=== PATIENT | male | born 1945 | race Caucasian/White ===

== ENCOUNTER 2018-01-24 10:00 | Day surgery (SDC) | payer MEDICARE, OTHER ==
[~2018-01-24 10:00] MED LIST: BUPIVACAINE HCL 0.5% 10 ML VIAL As Ordered
[2018-01-24] MEDS: NS 1,000 ML IV (10:15)
[2018-01-24] MEDS ORDERED: PROPOFOL 200 MG/20 ML VIAL As Ordered ×2 (10:35)
== END 2018-01-24 12:07 | disposition home or self-care (01) ==
LOC: M OPP 10:00
DX: Z12.11 Encounter for screening for malignant neoplasm of colon (principal); Z86.010 Personal history of colon polyps; D12.5 Benign neoplasm of sigmoid colon; D12.2 Benign neoplasm of ascending colon; I10 Essential (primary) hypertension; E78.5 Hyperlipidemia, unspecified; M19.90 Unspecified osteoarthritis, unspecified site; Z95.5 Presence of coronary angioplasty implant and graft; Z79.899 Other long term (current) drug therapy
CPT/HCPCS: 45385

== ENCOUNTER → 2020-08-18 | Outpatient (CLI) | payer SELFPAY ==
[~2020-08-18] MED LIST changes: +ASPI81TA26 PO; +ATOR40TA75 PO; -BUPIVACAINE HCL 0.5% 10 ML VIAL As Ordered; +CLAR10CA3 PO; +CO Q10CA PO; +FLON1SPR NARES; +LISI10TA22 PO; +NITR0.4S14 SL; +VITA50TA43 PO
== END ==
LOC: M LABSMTC 07:58
PROVIDERS: ATTEND Pediatrics
DX: Z20.822 Contact with and (suspected) exposure to COVID-19 (principal)

== ENCOUNTER → 2020-12-28 | Outpatient (CLI) | payer MEDICARE, OTHER ==
--- NOTE | 2020-12-28 11:36 | REP ---
INDICATION: NICOTINE DEPENDENCE. COMPARISON: None. TECHNIQUE: Axial noncontrast images from the thoracic inlet to the upper abdomen using low-dose lung screening technique (LDCT). As per the protocol only lung window images were sent to the read station interpretation. FINDINGS: In the right lung apex are is a single 4 mm size nodule. No other abnormal nodules, masses, or opacities are present. Bibasilar curvilinear densities are seen likely secondary to chronic fibrotic and/or subsegmental atelectatic changes. Grossly, the mediastinum and pulmonary feliciano are within normal limits. Grossly, the imaged upper abdomen and imaged osseous structures are within normal limits. There is no evidence of a pleural or pericardial effusion. IMPRESSION: Single 4 mm size nodule in the right upper lobe as described above. According to the revised Fleischner society criteria this represents a category 3 lesion for which a six-month follow-up CT is recommended. <Electronically signed by Cali Scruggs > 12/28/20 [id number]
== END ==
LOC: M RAD 09:58
PROVIDERS: ATTEND Internal Medicine
DX: Z12.2 Encounter for screening for malignant neoplasm of respiratory organs (principal); Z87.891 Personal history of nicotine dependence; R91.1 Solitary pulmonary nodule

== ENCOUNTER → 2021-07-18 | Outpatient (CLI) | payer MEDICARE, OTHER ==
--- NOTE | 2021-07-18 12:03 | REP ---
INDICATION: SMOKER 6 MO F/U COMPARISON: 12/28/2020 a low-dose screening CT of the lungs TECHNIQUE: Standard helical technique without intravenous contrast administration FINDINGS: There is no mediastinal or hilar adenopathy. There are no pleural or pericardial effusions. The imaged upper abdomen and imaged osseous structures are within normal limits. Evaluation of the lung childress shows no change in the 4 mm size right upper lobe nodule. No new abnormal nodules, masses, or opacities have developed. IMPRESSION: Lung rads category 2 right upper lobe nodule. According to the revised Fleischner society criteria 1 year follow-up is recommended. <Electronically signed by Cali Scruggs > 07/18/21 [id number]
== END ==
LOC: M PLAIMG 11:37
PROVIDERS: ATTEND Internal Medicine
DX: R91.1 Solitary pulmonary nodule (principal); Z12.2 Encounter for screening for malignant neoplasm of respiratory organs; Z87.891 Personal history of nicotine dependence

== ENCOUNTER → 2022-06-28 | Outpatient (CLI) | payer MEDICARE, OTHER | LOC: M PLAIMG 12:52 | PROVIDERS: ATTEND Internal Medicine | DX: R91.1 Solitary pulmonary nodule (principal); D38.1 Neoplasm of uncertain behavior of trachea, bronchus and lung ==

== ENCOUNTER 2022-10-23 12:32 | Outpatient (RCR) | payer MEDICARE, OTHER | END 2022-11-12 | LOC: M ST 12:32 | DX: S06.6X1D Traumatic subarachnoid hemorrhage with loss of consciousness of 30 minutes or less, subsequent encounter (principal) ==

== ENCOUNTER 2023-09-04 09:59 | Day surgery (SDC) | payer MEDICARE, OTHER ==
[~2023-09-04] VITALS: Ht 182.9 cm; Wt 99.3 kg
[~2023-09-04 09:59] MED LIST changes: +ATOR1TAB21 PO; +D-3-50003 PO; +METO1TAB32 PO; +SILD100T PO
[2023-09-04] MEDS ORDERED: LR 1,000 ML IV SCH (10:40)
[2023-09-04] MEDS ORDERED: MIDAZOLAM INJ 2MG/2ML VIAL As Ordered ONE (10:42)
[2023-09-04] MEDS ORDERED: fentaNYL 100 MCG/2 ML INJECTION As Ordered ONE (10:42)
[2023-09-04] MEDS ORDERED: propofoL 200 MG/20 ML VIAL As Ordered ONE (10:43)
[2023-09-04] MEDS: ceFAZolin SOD 2 GM in IV 1 EA IV ONE (11:22)
[2023-09-04] MEDS: LIDOCAINE 1% MDV 20ML VIAL As Ordered ONE (11:32)
[2023-09-04 11:42] VITALS: BP 122/74; TEMP 97.3; O2SAT 96
== END 2023-09-04 12:10 | disposition home or self-care (01) ==
LOC: M SDC 09:59
PROVIDERS: ATTEND Internal Medicine Cardiovascular Disease
DX: I63.9 Cerebral infarction, unspecified (principal); I10 Essential (primary) hypertension; I25.2 Old myocardial infarction; E78.00 Pure hypercholesterolemia, unspecified; G47.30 Sleep apnea, unspecified; Z86.73 Personal history of transient ischemic attack (TIA), and cerebral infarction without residual deficits; Z95.5 Presence of coronary angioplasty implant and graft; Z79.82 Long term (current) use of aspirin; Z79.899 Other long term (current) drug therapy
CPT/HCPCS: 33285; 93005; C1764; J0690; J2250; J3010

== ENCOUNTER → 2024-04-14 | Outpatient (CLI) | payer MEDICARE, OTHER | LOC: M PLAIMG 14:01 | PROVIDERS: ATTEND Internal Medicine | DX: D38.1 Neoplasm of uncertain behavior of trachea, bronchus and lung (principal); J98.11 Atelectasis; I25.10 Atherosclerotic heart disease of native coronary artery without angina pectoris ==

== ENCOUNTER → 2024-11-25 | Outpatient (CLI) | payer MEDICARE, OTHER | LOC: M WUC 14:55 | PROVIDERS: ATTEND Internal Medicine | DX: N40.1 Benign prostatic hyperplasia with lower urinary tract symptoms (principal) ==

== ENCOUNTER 2025-07-15 09:08 | Day surgery (SDC) | payer MEDICARE, OTHER ==
[~2025-07-15] VITALS: Ht 182.9 cm; Wt 95.8 kg
[~2025-07-15 09:08] MED LIST changes: +MAGN64TASA PO; +MULT-90 PO; +OSTETAB2 PO; +PRES1CHW PO; +TAMS1CAP17 PO; +VITA-243 PO
[2025-07-15] MEDS ORDERED: LIDOCAINE 2% 100 MG/5 ML SDV (FOR ANES.) As Ordered ONE (10:37)
[2025-07-15] MEDS ORDERED: GLYCOPYRROLATE INJ 0.2 MG/ML 2 ML VIAL As Ordered ONE (10:54)
[2025-07-15 11:41] VITALS: BP 131/72; O2SAT 95
== END 2025-07-15 11:43 | disposition home or self-care (01) ==
LOC: M OPP 09:08
PROVIDERS: ATTEND Surgery
DX: D12.6 Benign neoplasm of colon, unspecified (principal); K57.30 Diverticulosis of large intestine without perforation or abscess without bleeding; Z86.0100 Personal history of colon polyps, unspecified; Z80.0 Family history of malignant neoplasm of digestive organs; G47.30 Sleep apnea, unspecified; Z95.5 Presence of coronary angioplasty implant and graft; Z79.82 Long term (current) use of aspirin; Z79.51 Long term (current) use of inhaled steroids; Z79.899 Other long term (current) drug therapy; Z87.891 Personal history of nicotine dependence
CPT/HCPCS: 45385; 88305; J1596